=== PATIENT | female | born 1985 | race African-American/Black ===

== ENCOUNTER 2024-05-10 23:42 | Emergency (ER) | payer SELFPAY ==
[~2024-05-10] VITALS: Ht 154.9 cm; Wt 56.7 kg
[2024-05-11] MEDS ORDERED: ALBUTEROL FS 2.5 MG/3 ML VIAL.NEB ONE (00:11)
[2024-05-11] MEDS ORDERED: IPRATROPIUM NEB FS 0.5 MG/2.5 ML AMPUL.NEB ONE (00:11)
[2024-05-11] MEDS ORDERED: predniSONE 20 MG TABLET ONE (00:16)
[2024-05-11] MEDS: predniSONE 20 MG TABLET PO ONE (00:16)
[2024-05-11 00:18] VITALS: O2SAT 97
[2024-05-11 00:19] VITALS: O2SAT 97
[2024-05-11 00:29] VITALS: O2SAT 100
[2024-05-11] MEDS: ALBUTEROL FS 2.5 MG/3 ML VIAL.NEB NEB ONE (01:11)
[2024-05-11] MEDS: IPRATROPIUM NEB FS 0.5 MG/2.5 ML AMPUL.NEB NEB ONE (01:11)
[2024-05-11] MEDS ORDERED: ALBU18HF2 INH (01:15)
[2024-05-11] MEDS ORDERED: PRED50TA PO (01:15)
[2024-05-11 01:22] VITALS: BP 122/76; TEMP 98.4; O2SAT 100
== END 2024-05-11 01:25 | disposition home or self-care (01) ==
LOC: ER 23:53
DX: J45.901 Unspecified asthma with (acute) exacerbation (principal); J44.89 Other specified chronic obstructive pulmonary disease; Z79.52 Long term (current) use of systemic steroids
CPT/HCPCS: 99283; 94640; J7512